=== PATIENT | female | born 1940 | race Caucasian/White ===

== ENCOUNTER 2020-03-20 07:03 | Day surgery (SDC) | payer BC ==
[2020-03-16 13:00] LABS: BASOPHILS % (AUTO) 0.6 % (0-1); EOSINOPHILS # (AUTO) 0.4 X10'3 (0-0.9); EOSINOPHILS % (AUTO) 4.8 % (0-6); LYMPHOCYTES % (AUTO) 12.9 % (21-51); MEAN CORPUSCULAR HEMOGLOBIN 32.1 PG (27.0-31.0); MEAN CORPUSCULAR HGB CONC 33.2 g/dL (33.0-36.5); MEAN CORPUSCULAR VOLUME 96.5 FL (78-98); MEAN PLATELET VOLUME 7.6 FL (7.4-10.4); MONOCYTES # (AUTO) 1.1 X10'3 (0-0.9); MONOCYTES % (AUTO) 13.5 % (2-12); NEUTROPHILS # (AUTO) 5.3 X10'3 (1.8-7.7); NEUTROPHILS % (AUTO) 68.2 % (42-75); PRE OP HEMATOCRIT 35.6 % (35.0-45.0); PRE OP HEMOGLOBIN 11.8 g/dL (12.0-16.0); PRE OP PLATELET COUNT 251 X10'3 (140-440); RED BLOOD COUNT 3.69 X10'6 (4.20-5.60); RED CELL DISTRIBUTION WIDTH 13.7 % (11.5-14.5)
[2020-03-16 13:11] LABS: PRE OP INR 1.1 INR; PRE OP PROTIME 10.9 SECONDS (9.0-12.0)
[2020-03-16 13:18] LABS: ALBUMIN 3.6 G/DL (3.4-5.0); ALKALINE PHOSPHATASE 76 IU/L (46-116); BLOOD UREA NITROGEN 40 MG/DL (7-18); BUN/CREATININE RATIO 28.4 (6.6-38.0); CALCIUM 9.6 MG/DL (8.5-10.1); CHLORIDE 102 MMOL/L (99-107); CREATININE 1.41 MG/DL (0.40-0.90); PRE OP ALT 30 U/L (30-65); PRE OP ANION GAP 7 (8-16); PRE OP AST 27 U/L (10-37); PRE OP BILIRUB, TOTAL 0.9 MG/DL (0.0-1.0); PRE OP GLUCOSE 86 MG/DL (70-104); PRE OP POTASSIUM 4.2 MMOL/L (3.4-5.1); PRE OP SODIUM 139 MMOL/L (135-145); TOTAL CARBON DIOXIDE 29.8 MMOL/L (24-32); TOTAL PROTEIN 7.3 G/DL (6.4-8.2); eGFR 36 ML/MIN
[~2020-03-20] VITALS: Ht 165.1 cm; Wt 49.0 kg
[2020-03-20] VITALS (15 sets, daily range): BP systolic 102–180; BP diastolic 47–100
[~2020-03-20 07:03] MED LIST: ANAS1TAB24 PO; CA P PO; CHOL10002 PO; CYAN100087 PO; DOCUMENT DATE & TIME OF BETA-BLOCKER PO ONE; FLEC50TA28 PO; FOLI0.4T14 PO; IRON18TA PO; MAGN500C16 PO; METO-384 PO; MULT-1173; OMEG1CAP2 PO; PANT40TA4 PO; RIVA15TA PO; famotidine 20mg tablet PO ONE; ringers solution, lacted 1,000 ML IV SCH
[2020-03-20] MEDS ORDERED: LIDOcaine 1% (10mg/ml) 2ml vial ONE (07:30)
[2020-03-20] MEDS ORDERED: diphenhydrAMINE 25mg capsule PO ONE (07:35)
[2020-03-20] MEDS ORDERED: ringers solution, lacted 1,000 ML IV SCH (08:36)
[2020-03-20] MEDS ORDERED: hydrALAZINE 20mg/ml inj. IV PRN (08:40)
[2020-03-20] MEDS ORDERED: morphine 4 MG/ML inj SYRINge IV PRN (08:40)
[2020-03-20] MEDS ORDERED: labetalol 20mg/4ml (5mg/ml) syringe IV PRN (08:40)
[2020-03-20] MEDS ORDERED: fentaNYL/PF 50MCG/1 ML 2ML syringe IV PRN ×2 (08:40)
[2020-03-20] MEDS ORDERED: ondansetron/PF 4mg/2ml inj IV PRN (08:40)
[2020-03-20] MEDS ORDERED: morphine 2 MG/ML inj. syringe IV PRN (08:40)
[2020-03-20] MEDS ORDERED: fentaNYL/PF 50MCG/1 ML 2ML syringe ONE (08:42)
[2020-03-20] MEDS ORDERED: midazolam 2 mg/2 ml injection ONE (08:42)
[2020-03-20] MEDS ORDERED: vancomycin 1,000mg inj ONE (08:58)
[2020-03-20] MEDS ORDERED: sevoflurane 250ml liquid IH ONE (08:58)
[2020-03-20] MEDS ORDERED: LIDOcaine 1%/PF 5ML 10 MG/ML VIAL ONE (08:58)
[2020-03-20] MEDS ORDERED: propofol 10mg/ml 20ml vial IV ONE (08:58)
[2020-03-20] MEDS ORDERED: etomidate 2mg/ml inj. ONE (09:21)
[2020-03-20] MEDS ORDERED: ondansetron/PF 4mg/2ml inj ONE (09:21)
[2020-03-20] MEDS ORDERED: rocuronium 10mg/ml inj IV ONE (09:21)
[2020-03-20] MEDS ORDERED: dexamethasone sod phosphate 4mg/ml inj. ONE (09:21)
[2020-03-20] MEDS ORDERED: hydrALAZINE 20mg/ml inj. IV ONE (09:21)
[2020-03-20] MEDS ORDERED: LIDOcaine 1% (10mg/ml)w/preservative injection 20ml MDV ONE (09:26)
[2020-03-20] MEDS ORDERED: heparin 1,000 UNITS/NS 500ml 500 ML ONE ×2 (09:26→09:51)
[2020-03-20] MEDS ORDERED: iohexol 350 MG/ML 50ML vial IV ONE (09:26)
[2020-03-20] MEDS ORDERED: glycopyrrolate 0.2mg/ml inj ONE (10:08)
[2020-03-20] MEDS ORDERED: neostigmine methylsulfate 1 MG/ML 10ml vial ONE (10:08)
--- NOTE | 2020-03-20 10:26 | NUR ---
RECEIVED FROM CAT LAB VIA GURNEY ACCOMPANIED BY ANESTHESIOLOGIST DR SIM, REPORT GIVEN. PT DROWSY BUT AROUSES EASILY WITH NO COMPLAINT OF PAIN AT THIS TIME.20 GAUGE ARTERIAL LINE RIGHT WRIST, 18 GAUGE PIV L WRIST PATENT AND RUNNING LR AT 200 ML PER HR. WOODS, ABD SOFT, PERIPHERAL PULSES PALPABLE, CAP REFILL GOOD, SKIN PINK AND WARM, RESTING COMFORTABLY.
--- NOTE | 2020-03-20 11:30 | NUR ---
Received report from Olena HARMON. Pt arrived via [place] with all personal belongings. Assumed pt care. Pt condition appears stable. Right groin soft and right radial artery access site with dressing. Pt drowsy at the moment. VSS. Addendum: 03/20/20 at 1444 by Jeffrey Hahn RN Pt arrived to Short Stay at 11:46 AM
[2020-03-20] MEDS ORDERED: normal saline 1,000 ML IV SCH (11:35)
--- NOTE | 2020-03-20 11:46 | NUR ---
TRANSPORTED VIA GURNEY TO SHORT STAY ACCOMPANIED BY MYSELF, REPORT GIVEN. PT DROWSY BUT AROUSES EASILY WITH NO COMPLAINT OF PAIN AT THIS TIME. 18 GAUGE PIV L WRIST PATENT AND RUNNING LR AT 200 ML PER HR. WOODS, ABD SOFT, PERIPHERAL PULSES PALPABLE, CAP REFILL GOOD, SKIN PINK AND WARM, RESTING COMFORTABLY. 4X4 AND TEGADERM DRESSING R GROIN CDI, TOLERATING FLUIDS WELL. LEFT IN CARE OF PRAKASH HARMON.
== END 2020-03-20 14:00 | disposition home or self-care (01) ==
LOC: PAS 07:03
PROVIDERS: ATTEND Internal Medicine Cardiovascular Disease
DX: I51.0 Cardiac septal defect, acquired (principal); I12.9 Hypertensive chronic kidney disease with stage 1 through stage 4 chronic kidney disease, or unspecified chronic kidney disease; N18.3 Chronic kidney disease, stage 3 (moderate); I48.20 Chronic atrial fibrillation, unspecified; I48.3 Typical atrial flutter; E78.00 Pure hypercholesterolemia, unspecified; Z85.3 Personal history of malignant neoplasm of breast; Z95.0 Presence of cardiac pacemaker; Z87.891 Personal history of nicotine dependence; Z72.89 Other problems related to lifestyle; Z11.59 Encounter for screening for other viral diseases; Z79.01 Long term (current) use of anticoagulants; Z79.899 Other long term (current) drug therapy; Z98.890 Other specified postprocedural states
CPT/HCPCS: 36415; 71046; 80053; 82948; 85025; 85610; 93005; 93312; 93325; 93580; C1769; C1894; J0360; J1100; J1644; J2001; J2250; J2405; J2704; J2710; J3010; J3370; J7030; J7040; Q0163; Q9967; U0003; A4618; A6258; J3490; J7120

== ENCOUNTER 2022-10-11 09:48 | Emergency (ER) | payer MEDICARE ==
[~2022-10-11 09:48] MED LIST changes: -DOCUMENT DATE & TIME OF BETA-BLOCKER PO ONE; -MAGN500C16 PO; +MAGN500C4 PO; -PANT40TA4 PO; +PANT40TA54 PO; -famotidine 20mg tablet PO ONE; -ringers solution, lacted 1,000 ML IV SCH
[2022-10-11] MEDS ORDERED: normal saline 1000ML IV soln IVB ONE (09:55)
--- NOTE | 2022-10-11 10:00 | NUR ---
pt alert to self speaks clearly confusion noted. resp even unlabored. skin pale warm to touch. pt did not complain of pain when palpated joints. no swelling or reddness noted.
[2022-10-11 10:37] LABS: BASOPHILS % (AUTO) 0.4 % (0-1); EOSINOPHILS # (AUTO) 0.1 X10'3 (0-0.9); EOSINOPHILS % (AUTO) 1.4 % (0-6); HEMOGLOBIN 8.2 g/dl (12.0-16.0); LYMPHOCYTES % (AUTO) 16.4 % (21-51); MEAN CORPUSCULAR HEMOGLOBIN 26.8 PG (27.0-31.0); MEAN CORPUSCULAR HGB CONC 31.6 g/dL (33.0-36.5); MEAN CORPUSCULAR VOLUME 84.8 FL (78-98); MONOCYTES # (AUTO) 0.9 X10'3 (0-0.9); MONOCYTES % (AUTO) 14.5 % (2-12); NEUTROPHILS # (AUTO) 4.2 X10'3 (1.8-7.7); NEUTROPHILS % (AUTO) 67.3 % (42-75); PLATELET COUNT 256 X10'3 (140-440); RED BLOOD COUNT 3.06 X10'6 (4.20-5.60); RED CELL DISTRIBUTION WIDTH 17.4 % (11.5-14.5); WHITE BLOOD COUNT 6.2 X10'3 (4.5-11.0)
[2022-10-11 11:16] LABS: ALANINE AMINOTRANSFERASE 31 U/L (12-78); ALBUMIN 2.3 G/DL (3.4-5.0); ALBUMIN/GLOBULIN RATIO 0.8 (1.1-1.5); ALKALINE PHOSPHATASE 93 IU/L (46-116); ANION GAP 4 (8-16); ASPARTATE AMINO TRANSFERASE 42 U/L (10-37); BILIRUBIN,TOTAL 0.7 MG/DL (0.1-1.0); BLOOD UREA NITROGEN 24 MG/DL (7-18); BUN/CREATININE RATIO 15.9 (6.6-38.0); CALCIUM 9.3 MG/DL (8.5-10.1); CHLORIDE 97 MMOL/L (99-107); CREATININE 1.51 MG/DL (0.40-0.90); GLUCOSE 107 MG/DL (70-104); POTASSIUM 3.9 MMOL/L (3.5-5.1); SODIUM 135 MMOL/L (135-145); TOTAL CARBON DIOXIDE 33.8 MMOL/L (24-32); TOTAL PROTEIN 5.3 G/DL (6.4-8.2); eGFR 33 ML/MIN
--- NOTE | 2022-10-11 12:00 | NUR ---
pt tried to get out of bed but was redirected. confusion and anxiety noted
[2022-10-11 12:35] LABS: CLARITY,URINE CLOUDY (Clear); COLOR,URINE YELLOW (Yellow); GLUCOSE, URINE NEGATIVE (Neg); KETONES,URINE NEGATIVE (Neg); LEUKOCYTE ESTERASE ,URINE NEGATIVE (Neg); NITRITES, URINE NEGATIVE (Neg); OCCULT BLOOD,URINE NEGATIVE (Neg); PROTEIN,URINE NEGATIVE (Neg); UROBILINOGEN,URINE 0.2 E.U/dL (0.2-1.0)
[2022-10-11 13:02] LABS: UA COLLECTION TYPE NON-SPECIFIED
[2022-10-11 13:05] LABS: BACTERIA,URINE FEW /HPF (Neg); RBC,URINE 0-2 /HPF (0-2); RENAL CELLS, URINE FEW /HPF; SQUAMOUS EPITHELIAL CELL,UR FEW /LPF (FEW); WBC,URINE 0-4 /HPF (0-4)
[2022-10-11 13:06] LABS: HYALINE CASTS 0-3 /LPF (NEGATIVE); MUCUS STRANDS NONE SEEN /LPF (Neg)
--- NOTE | 2022-10-11 16:42 | NUR ---
pt taken back to [facility] via [employer]. daughter to accompany. pt stated her left knee hurts. no redness or swelling noted. no pain upon palpation. pt was able to transfer piviot into wheelchair without incident. report called to saúl at [facility]. all belongings taken by daughter
[2022-10-11 16:47] VITALS: BP 134/75
== END 2022-10-11 16:49 | disposition home or self-care (01) ==
LOC: ER 09:48
DX: S00.03XA Contusion of scalp, initial encounter (principal); G31.84 Mild cognitive impairment of uncertain or unknown etiology; I95.9 Hypotension, unspecified; Z79.899 Other long term (current) drug therapy; W19.XXXA Unspecified fall, initial encounter; Y93.89 Activity, other specified; Y92.89 Other specified places as the place of occurrence of the external cause; Y99.8 Other external cause status
CPT/HCPCS: 36415; 70450; 71045; 80053; 81001; 84484; 85025; 93005; 96360; 99285; J7030

== ENCOUNTER 2022-10-15 02:50 | Emergency (ER) | payer MEDICARE ==
[~2022-10-15] VITALS: Ht 162.6 cm; Wt 40.9 kg
[2022-10-15 04:30] VITALS: BP 161/76
== END 2022-10-15 06:28 | disposition home or self-care (01) ==
LOC: ER 02:51
DX: R04.0 Epistaxis (principal); I11.9 Hypertensive heart disease without heart failure; E78.00 Pure hypercholesterolemia, unspecified; K21.9 Gastro-esophageal reflux disease without esophagitis; Z86.2 Personal history of diseases of the blood and blood-forming organs and certain disorders involving the immune mechanism; Z79.899 Other long term (current) drug therapy
CPT/HCPCS: 99284

== ENCOUNTER 2022-10-25 23:53 | Emergency (ER) | payer MEDICARE ==
[~2022-10-25] VITALS: Ht 157.5 cm; Wt 50.0 kg
[2022-10-26 01:04] LABS: CLARITY,URINE TURBID (Clear); COLOR,URINE YELLOW (Yellow); GLUCOSE, URINE NEGATIVE (Neg); KETONES,URINE NEGATIVE (Neg); LEUKOCYTE ESTERASE ,URINE LARGE (Neg); NITRITES, URINE NEGATIVE (Neg); OCCULT BLOOD,URINE TRACE-INTACT (Neg); PROTEIN,URINE NEGATIVE (Neg); UROBILINOGEN,URINE 0.2 E.U/dL (0.2-1.0)
[2022-10-26 01:05] LABS: BASOPHILS % (AUTO) 0.5 % (0-1); EOSINOPHILS # (AUTO) 0.3 X10'3 (0-0.9); EOSINOPHILS % (AUTO) 3.1 % (0-6); LYMPHOCYTES # (AUTO) 1.9 X10'3 (1.1-4.8); LYMPHOCYTES % (AUTO) 23.1 % (21-51); MEAN CORPUSCULAR HEMOGLOBIN 26.6 PG (27.0-31.0); MEAN CORPUSCULAR HGB CONC 32.8 g/dL (33.0-36.5); MEAN PLATELET VOLUME 7.2 FL (7.4-10.4); MONOCYTES # (AUTO) 1.4 X10'3 (0-0.9); MONOCYTES % (AUTO) 16.8 % (2-12); NEUTROPHILS # (AUTO) 4.7 X10'3 (1.8-7.7); NEUTROPHILS % (AUTO) 56.5 % (42-75); PLATELET COUNT 327 X10'3 (140-440); RED BLOOD COUNT 2.52 X10'6 (4.20-5.60); RED CELL DISTRIBUTION WIDTH 17.5 % (11.5-14.5); WHITE BLOOD COUNT 8.4 X10'3 (4.5-11.0)
[2022-10-26 01:07] LABS: HEMOGLOBIN 6.7 g/dl (12.0-16.0)
[2022-10-26 01:08] LABS: HEMATOCRIT 20.4 % (35.0-45.0)
[2022-10-26 01:15] LABS: UA COLLECTION TYPE CLN CATCH MIDSTREAM
[2022-10-26 01:16] LABS: SQUAMOUS EPITHELIAL CELL,UR FEW /LPF (FEW); WBC,URINE TNTC /HPF (0-4)
[2022-10-26 01:17] LABS: APTT 33 SECONDS (22-32)
[2022-10-26 01:17] LABS: BACTERIA,URINE 3+ /HPF (Neg)
[2022-10-26 01:18] LABS: ALANINE AMINOTRANSFERASE 16 U/L (12-78); ALBUMIN 2.4 G/DL (3.4-5.0); ALBUMIN/GLOBULIN RATIO 0.7 (1.1-1.5); ALKALINE PHOSPHATASE 100 IU/L (46-116); ANION GAP 4 (8-16); ASPARTATE AMINO TRANSFERASE 31 U/L (10-37); BILIRUBIN,TOTAL 0.7 MG/DL (0.1-1.0); BLOOD UREA NITROGEN 33 MG/DL (7-18); BUN/CREATININE RATIO 20.1 (6.6-38.0); CALCIUM 10.9 MG/DL (8.5-10.1); CHLORIDE 94 MMOL/L (99-107); CREATININE 1.64 MG/DL (0.40-0.90); GLUCOSE 107 MG/DL (70-104); SODIUM 133 MMOL/L (135-145); TOTAL CARBON DIOXIDE 34.9 MMOL/L (24-32); TOTAL PROTEIN 5.8 G/DL (6.4-8.2); eGFR 30 ML/MIN
[2022-10-26 01:18] LABS: TRANSITIONAL EPI CELLS,URINE FEW /HPF
[2022-10-26 01:58] LABS: OCCULT BLOOD STOOL POSITIVE (Neg)
[2022-10-26 02:03] VITALS: BP 189/86
[2022-10-26 02:23] VITALS: BP 186/98
[2022-10-26 02:25] LABS: TOTAL CELLS COUNTED 100
[2022-10-26 02:26] LABS: ACANTHOCYTES 1+; ANISOCYTOSIS 1+; ELLIPTOCYTES FEW; PLATELET ESTIMATE NORMAL; POLYCHROMASIA FEW; SMUDGE CELLS 1+; TARGET CELLS FEW; TEAR DROP CELLS FEW
[2022-10-26 03:23] VITALS: BP 188/100
[2022-10-26 04:23] VITALS: BP 188/99
[2022-10-26] MEDS ORDERED: metoprolol tartrate 50mg tablet PO ONE (06:15)
[2022-10-26] MEDS ORDERED: furosemide 10 MG/1 ML 10ml inj IV ONE (06:15)
[2022-10-26 06:33] LABS: HEMATOCRIT 25.9 % (35.0-45.0); HEMOGLOBIN 8.3 g/dl (12.0-16.0); MEAN CORPUSCULAR HEMOGLOBIN 27.2 PG (27.0-31.0); MEAN CORPUSCULAR HGB CONC 31.9 g/dL (33.0-36.5); MEAN CORPUSCULAR VOLUME 85.2 FL (78-98); MEAN PLATELET VOLUME 7.4 FL (7.4-10.4); PLATELET COUNT 304 X10'3 (140-440); RED BLOOD COUNT 3.04 X10'6 (4.20-5.60); RED CELL DISTRIBUTION WIDTH 17.9 % (11.5-14.5); WHITE BLOOD COUNT 9.2 X10'3 (4.5-11.0)
[2022-10-26] MEDS ORDERED: ondansetron/PF 4mg/2ml inj IV ONE (08:10)
[2022-10-26] MEDS ORDERED: morphine 4 MG/ML inj SYRINge IV ONE (08:10)
[2022-10-26] MEDS ORDERED: CefTRIAXone/D5W-Rocephin 1gm 50 ML IV ONE (08:15)
[2022-10-26] MEDS ORDERED: CefTRIAXone 2gm/D5W 50ml BAG 50 ML IV ONE (08:15)
[2022-10-26 11:25] VITALS: BP 134/68
== END 2022-10-26 11:22 ==
LOC: ER 23:53
DX: D64.9 Anemia, unspecified (principal); N39.0 Urinary tract infection, site not specified; K92.2 Gastrointestinal hemorrhage, unspecified; R11.10 Vomiting, unspecified; E78.00 Pure hypercholesterolemia, unspecified; I10 Essential (primary) hypertension; K21.9 Gastro-esophageal reflux disease without esophagitis; Z86.73 Personal history of transient ischemic attack (TIA), and cerebral infarction without residual deficits; Z85.3 Personal history of malignant neoplasm of breast; Z98.890 Other specified postprocedural states; Z79.899 Other long term (current) drug therapy
CPT/HCPCS: 36415; 36430; 70450; 80053; 81001; 82272; 85007; 85025; 85027; 85610; 85730; 86885; 86900; 86901; 86920; 87088; 96365; 96375; 99285; J0696; J1940; J2270; J7040; P9016